=== PATIENT | male | born 1985 | race Caucasian/White ===

== ENCOUNTER 2022-07-20 10:37 | Emergency (ER) | payer OTHER, SELFPAY ==
--- NOTE | ~2022-07-20 | CT_ITS ---
EXAMINATION: CT abdomen pelvis w con DATE: 07/20/2022 15:42 INDICATION: Right lower quadrant abdominal pain TECHNIQUE: Computed tomography (CT) of the abdomen and pelvis was performed with 100 CC Omnipaque 350 intravenous contrast. Automated exposure control and iterative reconstruction technique were employe d. Exam dose: 861.43 mGy-cm total exam DLP. COMPARISON: 12/20/2007 CT abdomen pelvis FINDINGS: The lung bases are clear. Normal heart size. No pericardial or pleural effusion. The liver, gallbladder, bile ducts, pancreas, pancreatic duct and spleen are unremarkable. Normal morphology of the adrenal glands. No renal mass lesion or urinary tract calculus or hydroureteronephrosis. There is diffuse thickening of the urinary bladder wall up to 1 cm, possibly due to underdistention; clinical correlation is recommended to exclude cystitis. The prostate gland is unremarkable. Normal caliber of the abdominal aorta. No intraperitoneal or retroperitoneal or pelvic mass lesion or adenopathy or ascites. Normal appendix. Mild colonic diverticulosis; no CT evidence of diverticulitis. No bowel obstruction, bowel wall thick ening, pneumatosis or intraperitoneal free air is detected. Included skeletal structures are unremarkable except for very prominent posterior spurring on the lef t at T12-L1, projecting up to 7 mm into the left side of the spinal canal. IMPRESSION: Normal appendix Minimal colonic diverticulosis; no CT evidence of diverticulitis Diffuse thickening of the urinary bladder wall, possibly due to underdistention; recommend clinical c orrelation to exclude cystitis. Very prominent posterior spurring on the left at T12-L1, encroaching approximately 7 mm on the spinal canal Reviewed, dictated and finalized at [facility]. Reviewed, dictated and finalized at [facility]. [employer] IMPRESSION: Normal appendix Minimal colonic diverticulosis; no CT evidence of diverticulitis Diffuse thickening of the urinary bladder wall, possibly due to underdistention ; recommend clinical correlation to exclude cystitis. Very prominent posterior spurring on the left at T12-L1, encroaching approximat arben 7 mm on the spinal canal
[2022-07-20 12:21] VITALS: BP 134/76; PULSE 56; RESP 18; TEMP 36.8; O2SAT 100
[2022-07-20 12:52] LABS: Basophils Absolute Auto 0.1 K/mm3 (0.0-0.1); Basophils Percent Auto 0.5 % (0.2-1.2); Eosinophils Absolute Auto 0.4 K/mm3 (0-0.3); Eosinophils Percent Auto 4.1 % (0-4.4); Hematocrit 44.5 % (42.0-52.0); Hemoglobin 15.4 g/dL (14.0-18.0); Immature Granulocyte Absolute 0.02 K/mm3 (0.00-0.031); Immature Granulocyte Percent A 0.2 % (0-0.5); Lymphocytes Absolute Auto 2.42 K/mm3 (0.9-3.2); Lymphocytes Percent Auto 26.6 % (18.3-44.2); Mean Corpuscular HGB Conc 34.6 g/dl (32-36); Mean Corpuscular Hemoglobin 31.3 pg (26-34); Mean Corpuscular Volume 90.4 fl (80-100); Mean Platelet Volume 9.1 fl (7.4-10.4); Monocytes Absolute Auto 0.6 K/mm3 (0.1-0.6); Monocytes Percent Auto 6.6 % (2.6-8.5); Neutrophils Absolute Auto 5.7 K/mm3 (1.3-6.7); Platelet Count Result 207 k/mm3 (150-375); Red Blood Count 4.92 M/mm3 (4.6-6.20); Red Cell Distribution Width 12.1 % (11.5-14.5); White Blood Count 9.1 K/mm3 (4.5-10.0)
[2022-07-20 13:07] LABS: Alanine Aminotransferase 26 U/L (6-50); Albumin Level 4.8 g/dL (3.5-5.1); Alkaline Phosphatase 80 U/L (38-126); Anion Gap 13 mmol/L (8-16); Aspartate Amino Transferase 25 U/L (17-59); Bilirubin,Total 0.7 mg/dL (0.2-1.3); Blood Urea Nitrogen 10 mg/dL (9-20); Calcium 9.1 mg/dL (8.4-10.2); Carbon Dioxide 23 mmol/L (22-30); Chloride 104 mmol/L (98-107); Estimated CRCL calculation 131 ml/min; Estimated Glomerular Filt Rate > 60; Glucose 122 mg/dL (65-110); Lipase 63 U/L (23-300); Sodium 140 mmol/L (137-145)
[2022-07-20 14:07] LABS: Appearance Urine Clear (Clear); Bilirubin Urine Negative (Negative); Blood Urine Negative (Negative); Color Urine Yellow (Yellow); Glucose Urine UA Negative (Negative); Ketones Urine Negative (Negative); Leukocyte Esterase Ur Negative LEU/UL (Negative); Nitrate Urine Negative (Negative); Protein Urine Negative (Negative); Specific Grav Ur 1.025 (1.001-1.035); Urobilinogen Urine 0.2 mg/dL (<2.0)
[2022-07-20 14:12] LABS: Add Urine Microscopic? NO
[2022-07-20 14:37] VITALS: BP 116/70; PULSE 72; RESP 18; O2SAT 98
--- NOTE | 2022-07-20 16:50 | ED.ABDPAIN ---
HPI - Abdominal Pain General Chief Complaint: Abdominal Pain Stated Complaint: appendicitis symptoms, abd x 4 Time Seen by Provider: 07/20/22 14:36 Source: patient and family Mode of arrival: ambulatory Limitations: no limitations History of Present Illness HPI narrative: 36-year-old otherwise healthy here with complaints of right-sided abdominal pain which started about 4 to 5 days ago. Denies any nausea, vomiting and diarrhea. No history of fever or chills. MD elicited complaint: abdominal pain Pertinent past history: none Onset (ago): day(s) (4) Pain Consistency: constant Location: RLQ Severity: moderate Quality: aching Radiation: RLQ Migration to: no migration Exacerbating factors: nothing Relieving factors: nothing Associated symptoms: denies other symptoms Related Data Allergies Allergy/AdvReac Type Severity Reaction Status Date / Time No Known Allergies Allergy Unknown Verified 07/20/22 14:35 Review of Systems Review of Systems: All systems reviewed & are unremarkable except as noted in HPI and below Constitutional: Constitutional: Reports no additional constitutional complaints Eyes: Eyes: Reports no additional eye complaints ENT: Reports system reviewed and no additional complaints, except as documented Cardiovascular: Cardiovascular: Reports no additional cardiovascular complaints Respiratory: Respiratory: Reports no additional respiratory complaints Gastrointestinal: Gastrointestinal: Reports as per HPI and Reports no additional gastrointestinal complaints Musculoskeletal: Musculoskeletal: Reports no additional musculoskeletal complaints Integumentary/Breasts: Skin/Breast: Reports system reviewed and no additional complaints, except as docu Neurologic: Reports system reviewed and no additional complaints, except as documented Exam Narrative: GENERAL: Well-appearing, well-nourished, and in no acute distress. HEAD: Normocephalic, atraumatic. EYES: PERRLA and EOMI. NECK: Supple. CHEST: Clear to auscultation. No respiratory distress. HEART: Regular rate and rhythm. No murmur heard. Normal peripheral pulses. ABDOMEN: Soft, tender in the right lower quadrant , nondistended, normal active bowel sounds. EXTREMITIES: Normal range of motion. No edema. SKIN: Warm, dry, no rash. NEURO: No focal deficits. Alert and oriented x3. PSYCH: Normal mood and affect. Course Course Emergency Course: 36-year-old otherwise healthy here with lower abdominal pain mostly on the right side is exam very minimal tenderness , CT of the abdomen and pelvis showed no evidence of appendicitis colonic diverticulosis. Advised patient to be on clear liquid diet and return to the ER if pain gets worse. Vital Signs Vital signs: Vital Signs Temperature 36.8 C 07/20/22 12:21 Pulse Rate 56 L 07/20/22 12:21 Respiratory Rate 18 07/20/22 12:21 Blood Pressure 134/76 07/20/22 12:21 Pulse Oximetry 100 07/20/22 12:21 Oxygen Delivery Room Air 07/20/22 12:21 Temperature 36.8 C 07/20/22 12:21 Pulse Rate 72 07/20/22 14:37 Respiratory Rate 18 07/20/22 14:37 Blood Pressure 116/70 07/20/22 14:37 Pulse Oximetry 98 07/20/22 14:37 Oxygen Delivery Room Air 07/20/22 12:21 MDM - Abdominal Pain MDM Narrative Medical decision making narrative: 36-year-old left-sided pain radiating to right lower quadrant area for the past [address] of the abdomen and pelvis and lab work. Patient states that his pain is minimal declined pain medication. Lab Data Result diagrams: 07/20/22 12:32 07/20/22 12:32 Labs: Lab Results 07/20/22 07/20/22 07/20/22 Range/Units 12:32 12:32 13:38 WBC 9.1 (4.5-10.0) K/mm3 RBC 4.92 (4.6-6.20) M/mm3 Hgb 15.4 (14.0-18.0) g/dL Hct 44.5 (42.0-52.0) % MCV 90.4 (80-100) fl MCH 31.3 (26-34) pg MCHC 34.6 (32-36) g/dl RDW 12.1 (11.5-14.5) % Plt Count 207 (150-375) k/mm3 MPV 9.1 (7.4-10.4) fl Immatu
[2022-07-20 17:10] VITALS: BP 110/78; PULSE 70; RESP 14; O2SAT 99
== END 2022-07-20 17:13 | disposition home or self-care (01) ==
PROVIDERS: Emergency Provider Family Medicine
DX: R10.31 Right lower quadrant pain (principal); R93.41 Abnormal radiologic findings on diagnostic imaging of renal pelvis, ureter, or bladder; M46.05 Spinal enthesopathy, thoracolumbar region
CPT/HCPCS: 36415; 74177; 80053; 81003; 83690; 85025; 99284; Q9967

== ENCOUNTER 2023-03-18 08:31 | Emergency (ER) | payer SELFPAY ==
[2023-03-18] VITALS (17 sets, daily range): BP systolic 109–136; BP diastolic 57–99; PULSE 51–72; RESP 16–18; TEMP 36.5; O2SAT 96–100
--- NOTE | ~2023-03-18 | CT_ITS ---
CT of the Abdomen and Pelvis: Indication: Abdominal pain Technique: 2.5 mm axial scans were obtained through the abdomen and pelvis following intravenous adm inistration of 100 cc of Omnipaque 350. Dose reduction technique was used on this scan by utilizing a utomated exposure control and iterative reconstruction technique. The dose-length product (DLP) was 8 63.55 mGy-cm. COMPARISON: 07/20/2022 Findings: Scans through the lung bases are unremarkable. The liver, spleen, pancreas, gallbladder, adrenals and kidneys are within normal limits. No evidence of aortic aneurysm. No lymphadenopathy. No bowel obstruction or bowel wall thickening. Normal appendix. Images through the pelvis were performed. Urinary bladder unremarkable. Prostate gland and seminal ve sicles are unremarkable. No ascites. Impression: No significant abnormalities seen. Reviewed, dictated and finalized at [facility]. Impression: No significant abnormalities seen.
--- NOTE | 2023-03-18 09:30 | ED.DENTAL ---
HPI - Dental/Oral General Chief complaint: Dental/Oral Stated complaint: toothache Time Seen by Provider: 03/18/23 09:00 Source: patient Mode of arrival: ambulatory Limitations: no limitations History of Present Illness HPI Narrative: Patient is a 37 y/o male who presents to the ED with c/o R lower dental pain. Patient reports having pain in his previously fractured R lower molar, tooth #32, for the past 2 weeks. He states his dentist retired last year and he has not tried getting into another dentist. He has been taking ibuprofen for the pain which provides minimal relief. Patient is concerned for infection. He states he feels like the infection has spread to the rest of his body. He complains of nausea and vomiting, periumbilical abdominal pain, subjective fevers over the last several days. He states the last time he had a temperature was yesterday, up to 102 degrees. He does still feel nauseous currently. Denies sore throat, drainage from the tooth, difficulty breathing or swallowing, chest pain, urinary symptoms. Related Data Allergies Allergy/AdvReac Type Severity Reaction Status Date / Time No Known Allergies Allergy Unknown Verified 03/18/23 08:51 Review of Systems Review of Systems: CONSTITUTIONAL: See HPI. ENT: See HPI. CARDIOVASCULAR: Denies chest pain. RESPIRATORY: Denies dyspnea. GASTROINTESTINAL: See HPI. GENITOURINARY: Denies dysuria or hematuria. SKIN: Denies rash or itching. MUSCULOSKELETAL: Denies back pain, joint pain, or myalgia. All systems reviewed & are unremarkable except as noted in HPI and below Exam Narrative: GENERAL: Well appearing, obese with BMI of 33.2, non-toxic, in no acute distress. HEAD: Normocephalic, atraumatic. ENT: Diffuse dental decay. Scattered dental caries. Right lower posterior molar, tooth #32 fractured and with large black dental carry. Tenderness to palpation to inner and outer gumline surrounding this tooth. Mild erythema noted. No focal abscess. No stridor. No trismus. No significant posterior pharynx erythema. No tonsillar hypertrophy or exudate. Uvula midline. NECK: Supple. No adenopathy, no masses. RESPIRATORY: Airway patent, respirations nonlabored. Clear to auscultation bilaterally, no rales, rhonchi, wheezing. CARDIOVASCULAR: Regular rate and rhythm without murmurs, rubs, or gallops. Radial pulses 2+ and equal bilaterally. ABDOMINAL: Soft, mild tenderness to periumbilical region and right lower abdomen, nondistended, no hepatosplenomegaly. Normoactive BS. MUSCULOSKELETAL: Moves all extremities. Strength/ROM intact without gross deformities. SKIN: Warm, dry, normal color. No rashes. NEURO: A&O X3. Speech clear. Cranial nerves II-XII grossly intact. Steady gait. No ataxic movements. PSYCHIATRIC: Appropriate mood and affect. Normal interaction. Course Vital Signs Vital signs: Vital Signs Temperature 97.7 F 03/18/23 08:37 Pulse Rate 59 L 03/18/23 08:37 Respiratory Rate 16 03/18/23 08:37 Blood Pressure 136/75 03/18/23 08:37 Pulse Oximetry 97 03/18/23 08:37 Oxygen Delivery Room Air 03/18/23 08:37 Temperature 97.7 F 03/18/23 08:37 Pulse Rate 51 L 03/18/23 12:13 Respiratory Rate 18 03/18/23 12:13 Blood Pressure 119/79 03/18/23 12:13 Pulse Oximetry 97 03/18/23 12:13 Oxygen Delivery Room Air 03/18/23 08:37 MDM - Dental/Oral MDM Narrative Medical decision making narrative: Patient presented to ED with right lower dental pain x2 weeks, also reporting abdominal pain, nausea, vomiting over the last several days. Vitals stable upon arrival. Afebrile. Patient's pain is consistent with dental caries. There are no focal signs of space-occupying abscess. The patient is controlling secretions well without signs of airway compromise. Will prescribe Augmentin for this and encouraged dental follow-up. Patient provided with list of dentists. Basic blood work obtained and unremarkable. No leukocytosis. Normal LFTs, tobias
[2023-03-18] MEDS: SODIUM CHLORIDE 0.9% IV 1,000 ML 999 ML IV CONT (09:53)
[2023-03-18] MEDS: ACETAMINOPHEN 500 MG TABLET 1000 MG PO (09:54)
[2023-03-18] MEDS: ONDANSETRON INJ 4 MG/2 ML VIAL IV PUSH (09:55)
[2023-03-18 09:56] LABS: Basophils Absolute Auto 0.1 K/mm3 (0.0-0.1); Basophils Percent Auto 0.7 % (0.2-1.2); Eosinophils Absolute Auto 0.4 K/mm3 (0-0.3); Eosinophils Percent Auto 4.9 % (0-4.4); Hematocrit 42.6 % (42.0-52.0); Hemoglobin 14.3 g/dL (14.0-18.0); Immature Granulocyte Absolute 0.02 K/mm3 (0.00-0.031); Immature Granulocyte Percent A 0.3 % (0-0.5); Lymphocytes Absolute Auto 2.17 K/mm3 (0.9-3.2); Lymphocytes Percent Auto 28.2 % (18.3-44.2); Mean Corpuscular HGB Conc 33.6 g/dl (32-36); Mean Corpuscular Volume 92.4 fl (80-100); Mean Platelet Volume 9.2 fl (7.4-10.4); Monocytes Absolute Auto 0.5 K/mm3 (0.1-0.6); Monocytes Percent Auto 6.8 % (2.6-8.5); Neutrophils Absolute Auto 4.6 K/mm3 (1.3-6.7); Neutrophils Percent Auto 59.1 % (45.5-73.1); Platelet Count Result 185 k/mm3 (150-375); Red Blood Count 4.61 M/mm3 (4.6-6.20); Red Cell Distribution Width 12.2 % (11.5-14.5); White Blood Count 7.7 K/mm3 (4.5-10.0)
[2023-03-18 10:11] LABS: Appearance Urine Clear (Clear); Bilirubin Urine Negative (Negative); Blood Urine Negative (Negative); Color Urine Yellow (Yellow); Glucose Urine UA Negative (Negative); Ketones Urine Negative (Negative); Leukocyte Esterase Ur Negative LEU/UL (Negative); Nitrate Urine Negative (Negative); Protein Urine Negative (Negative)
[2023-03-18 10:13] LABS: Alanine Aminotransferase 35 U/L (6-50); Albumin Level 4.4 g/dL (3.5-5.1); Alkaline Phosphatase 65 U/L (38-126); Anion Gap 8 mmol/L (8-16); Aspartate Amino Transferase 29 U/L (17-59); Bilirubin,Total 0.7 mg/dL (0.2-1.3); Blood Urea Nitrogen 9 mg/dL (9-20); Calcium 8.8 mg/dL (8.4-10.2); Carbon Dioxide 25 mmol/L (22-30); Chloride 105 mmol/L (98-107); Estimated CRCL calculation 128 ml/min; Estimated Glomerular Filt Rate > 60; Glucose 106 mg/dL (65-110); Lipase 32 U/L (23-300); Sodium 138 mmol/L (137-145)
[2023-03-18 10:19] LABS: Add Urine Microscopic? NO
== END 2023-03-18 12:15 | disposition home or self-care (01) ==
PROVIDERS: Emergency Provider Physician Assistant
DX: K02.9 Dental caries, unspecified (principal); R10.9 Unspecified abdominal pain; R11.2 Nausea with vomiting, unspecified
CPT/HCPCS: 36415; 74177; 80053; 81003; 83690; 85025; 96361; 96374; 99284; A9270; J2405; J7030; Q9967

== ENCOUNTER 2024-04-05 08:47 | Emergency (ER) | payer OTHER, SELFPAY ==
--- NOTE | ~2024-04-05 | XR_ITS ---
XR chest 2V Ordering provider: Anushka Bean MD History: 38 years Male with . INTERMITTENT CP X 1 MONTH, HX SMOKING . Comparison: None. FINDINGS: MEDIASTINUM: The cardiac silhouette is not enlarged. LUNGS: No infiltrates, effusions or pneumothorax. OTHER: No free air under the diaphragm. IMPRESSION: No acute cardiopulmonary pathology. Reviewed, dictated and finalized at [facility].
[2024-04-05 08:48] VITALS: PULSE 50
--- NOTE | 2024-04-05 08:48 | ECG_ITS ---
Test Date: 2024-04-05 08:52:08 Measurements Intervals [place] Rate: 60 P: 38 OR: 125 QRS: 24 QRSD: 90 T: 45 QT: 384 QTc: 384 Interpretive Statements SINUS RHYTHM LOW QRS VOLTAGE IN PRECORDIAL LEADS [QRS DEFLECTION < 1.0 mV IN CHEST LEADS] No previous ECG available for comparison Electronically Signed On 04-05-2024 10:46:20 CDT by Jackie Villavicencio M.D.
[2024-04-05 08:51] VITALS: BP 122/100; PULSE 65; RESP 18; TEMP 36.8; O2SAT 99
[2024-04-05 09:09] LABS: Basophils Percent Auto 0.4 % (0.2-1.2); Eosinophils Absolute Auto 0.4 K/mm3 (0-0.3); Eosinophils Percent Auto 4.4 % (0-4.4); Hematocrit 41.7 % (42.0-52.0); Hemoglobin 14.4 g/dL (14.0-18.0); Immature Granulocyte Absolute 0.02 K/mm3 (0.00-0.031); Immature Granulocyte Percent A 0.3 % (0-0.5); Lymphocytes Absolute Auto 1.91 K/mm3 (0.9-3.2); Lymphocytes Percent Auto 23.9 % (18.3-44.2); Mean Corpuscular HGB Conc 34.5 g/dl (32-36); Mean Corpuscular Hemoglobin 32.2 pg (26-34); Mean Corpuscular Volume 93.3 fl (80-100); Mean Platelet Volume 9.2 fl (7.4-10.4); Monocytes Absolute Auto 0.5 K/mm3 (0.1-0.6); Monocytes Percent Auto 5.8 % (2.6-8.5); Neutrophils Absolute Auto 5.2 K/mm3 (1.3-6.7); Neutrophils Percent Auto 65.2 % (45.5-73.1); Platelet Count Result 182 k/mm3 (150-375); Red Blood Count 4.47 M/mm3 (4.6-6.20); Red Cell Distribution Width 12.2 % (11.5-14.5)
[2024-04-05 09:20] LABS: INR 0.9; Prothrombin Time 12.4 Seconds (11.1-14.7)
[2024-04-05 09:21] LABS: Alanine Aminotransferase 24 U/L (6-50); Albumin Level 4.3 g/dL (3.5-5.1); Alkaline Phosphatase 55 U/L (38-126); Anion Gap 9 mmol/L (4-12); Aspartate Amino Transferase 26 U/L (17-59); Bilirubin,Total 0.6 mg/dL (0.2-1.3); Blood Urea Nitrogen 10 mg/dL (9-20); Calcium 8.8 mg/dL (8.4-10.2); Carbon Dioxide 23 mmol/L (22-30); Chloride 106 mmol/L (98-107); Estimated CRCL calculation 108 ml/min; Estimated Glomerular Filt Rate > 60; Glucose 144 mg/dL (65-110); Lipase 91 U/L (23-300); Partial Thromboplastin Time 27.1 Seconds (22.3-36.8); Potassium 3.9 mmol/L (3.4-5.0); Sodium 138 mmol/L (137-145)
[2024-04-05 09:32] LABS: Troponin I < 0.012 ng/mL (0.000-0.034)
[2024-04-05 09:46] VITALS: BP 118/78; PULSE 56; RESP 20; O2SAT 98
[2024-04-05] MEDS: ASPIRIN 81 MG CHEWABLE TABLET 324 MG PO (09:50)
--- NOTE | 2024-04-05 09:56 | ED.CHESTPAIN ---
HPI - Chest Pain General Chief Complaint: Chest Pain Stated Complaint: chest pain Time Seen by Provider: 04/05/24 09:36 Source: patient Mode of arrival: ambulatory Limitations: no limitations History of Present Illness HPI narrative: this is a 38-year-old male who presents to the ED with chief complaint of chest pressure this started around 0500 this morning. States this issue has been intermittent for the past several weeks but worse today. Patient states that my heart feels like it ate too much. Reports a lot of pressure in the central chest. It is not associated with exertion. Seems to come and go random, potentially worse in the mornings when he wakes up. 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 Reports associated paresthesias to the bilateral arms and legs, worse in the hands. he smokes cigarettes but has no other cardiac risk factors. Denies shortness of breath, cough, recent illness, fevers, chills, nausea, vomiting, abdominal pain, back pain. Related Data Allergies Allergy/AdvReac Type Severity Reaction Status Date / Time No Known Allergies Allergy Unknown Verified 03/18/23 08:51 Review of Systems Review of Systems: All systems as dictated in HPI Exam Narrative: GENERAL: Well-appearing, well-nourished, and in no acute distress. HEAD: Normocephalic, atraumatic. EYES: PERRLA and EOMI. ENT: Nares clear, no rhinorrhea or epistaxis. Mucous membranes moist. Oropharynx without tonsillar hypertrophy exudate or other lesions. NECK: Supple. No adenopathy or masses. CHEST: No respiratory distress. Clear to auscultation. No wheezes rales or rhonchi. mild central chest wall tenderness, worse at the left costochondral junctions. HEART: Regular rate and rhythm. No murmur heard. Normal peripheral pulses. ABDOMEN: Soft, nontender, nondistended, normal active bowel sounds. MSK: Normal range of motion. No edema. SKIN: Warm, dry, no rash. NEURO: Alert and oriented x4. No focal deficits. PSYCH: Normal mood and affect. Course Vital Signs Vital signs: Vital Signs Pulse Rate 50 L 04/05/24 08:48 Temperature 98.2 F 04/05/24 08:51 Pulse Rate 65 04/05/24 12:23 Respiratory Rate 16 04/05/24 12:23 Blood Pressure 116/83 04/05/24 12:23 Pulse Oximetry 97 04/05/24 12:23 Oxygen Delivery Room Air 04/05/24 08:51 MDM - Chest Pain MDM Narrative Medical decision making narrative: This is a 38-year-old male who presents to the ED for chief complaint of chest pain and paresthesias. normal vitals. No cardiac risk factors. Tenderness noted to the central chest on exam. EKG shows normal sinus rhythm. PERC rule negative for PE. Serial troponins are negative. Heart score is 0. Rx for naproxen given for costochondritis. Pt will be discharged in stable condition. Return precautions given and supportive measures discussed. Pt is understanding and agreeable with plan for discharge and follow-up with PCP. Lab Data 04/05/24 09:01 04/05/24 09:01 Labs: Lab Results 04/05/24 04/05/24 Range/Units 09:01 11:40 WBC 8.0 (4.5-10.0) K/mm3 RBC 4.47 L (4.6-6.20) M/mm3 Hgb 14.4 (14.0-18.0) g/dL Hct 41.7 L (42.0-52.0) % MCV 93.3 (80-100) fl MCH 32.2 (26-34) pg MCHC 34.5 (32-36) g/dl RDW 12.2 (11.5-14.5) % Plt Count 182 (150-375) k/mm3 MPV 9.2 (7.4-10.4) fl Immature Gran % (Auto) 0.3 (0-0.5) % Neut % (Auto) 65.2 (45.5-73.1) % Lymph % (Auto) 23.9 (18.3-44.2) % Cotton % (Auto) 5.8 (2.6-8.5) % Eos % (Auto) 4.4 (0-4.4) % Baso % (Auto) 0.4 (0.2-1.2) % Lymph # (Auto) 1.91 (0.9-3.2) K/mm3 Cotton # (Auto) 0.5 (0.1-0.6) K/mm3 Eos # (Auto) 0.4 H (0-0.3) K/mm3 Baso # (Auto) 0.0 (0.0-0.1) K/mm3 Abs Immat Gran (auto) 0.02 (0.00-0.031) K/mm3 Absolute Neuts (auto) 5.2 (1.3-6.7) K/mm3 Absolute Nucleated RBC 0.000 (0.0-0.012) K/mm3 Nucleated RBC % 0.0 (0.0-0.2) % PT 12.4 (11.1-14.7) Seconds INR
[2024-04-05 10:01] VITALS: BP 119/76; PULSE 55; RESP 19; O2SAT 98
--- NOTE | 2024-04-05 11:15 | ECG_ITS ---
Test Date: 2024-04-05 11:40:40 Measurements Intervals [place] Rate: 49 P: 30 GA: 130 QRS: 18 QRSD: 92 T: 42 QT: 413 QTc: 376 Interpretive Statements SINUS BRADYCARDIA Compared to ECG 04/05/2024 08:52:08 NO SIGNIFICANT CHANGES Electronically Signed On 04-05-2024 13:04:47 CDT by Jackie Villavicencio M.D.
[2024-04-05 11:50] VITALS: BP 120/79; PULSE 46; RESP 20; O2SAT 100
[2024-04-05 12:07] LABS: Troponin I < 0.012 ng/mL (0.000-0.034)
[2024-04-05 12:23] VITALS: BP 116/83; PULSE 65; RESP 16; O2SAT 97
== END 2024-04-05 12:24 | disposition home or self-care (01) ==
PROVIDERS: Emergency Medicine; Emergency Provider Physician Assistant
DX: M94.0 Chondrocostal junction syndrome [Tietze] (principal); R00.1 Bradycardia, unspecified
CPT/HCPCS: 36415; 71046; 80053; 83690; 84484; 85025; 85610; 85730; 93005; 99284; A9270